=== PATIENT | male | born 1950 | race Caucasian/White ===

== ENCOUNTER 2023-09-30 07:16 | Outpatient (RCR) | payer MEDICARE, OTHER, SELFPAY | END 2023-09-30 23:59 | disposition home or self-care (01) | LOC: RST 07:16 | PROVIDERS: ATTENDING PHYSICIAN Family Medicine | DX: I69.322 Dysarthria following cerebral infarction (principal); I69.321 Dysphasia following cerebral infarction | CPT/HCPCS: 92523 ==

== ENCOUNTER 2023-10-21 07:52 | Outpatient (RCR) | payer MEDICARE, OTHER, SELFPAY | END 2023-10-21 23:59 | disposition home or self-care (01) | LOC: ROT 07:52 | PROVIDERS: ATTENDING PHYSICIAN Family Medicine | DX: I69.322 Dysarthria following cerebral infarction (principal); I69.321 Dysphasia following cerebral infarction; Z73.6 Limitation of activities due to disability | CPT/HCPCS: 92507 ==

== ENCOUNTER 2024-07-22 13:54 | Emergency (ER) | payer MEDICARE, OTHER, SELFPAY ==
[2024-07-22 14:06] VITALS: BP 160/111
--- NOTE | 2024-07-22 14:21 | ED.GENMED ---
ED Provider Triage
<Katherine Izaguirre PA-C - Last Filed: 07/22/24 14:22>
-
Patient seen by provider in Triage?: Seen in Triage
Attestation: A medical screening examination has been initiated by a qualified medical provider. Based on the assessment performed at this time, it has been determined that an emergent medical condition may exist and the patient has been informed
that further medical evaluation and possible additional diagnostic testing may be needed.
HPI: 74yoM here for detox evaluation. Drinks two 375ml bottles of vodka/day. Last drink this morning. Would like to stop drinking. No prior history of withdrawal seizures.
GENERAL: Alert , in no apparent distress
EYE: No visual abnormalities.
NECK: Trachea midline
ENT: No visible abnormalities.
LUNGS: No acute respiratory distress
NEUROLOGICAL: Alert and oriented
SKIN: Skin intact. No visible changes.
MUSCULOSKELETAL: Moving extremities normally
PSYCH: Normal and appropriate interaction.
This is a medical evaluation conducted in person to initiate diagnostic evaluation and provide initial therapeutics. Please see further documentation by the treating clinician.
CBC, CMP, ETOH, magnesium, and EKG ordered.
History of Present Illness
<Katherine Izaguirre PA-C - Last Filed: 07/22/24 14:22>
General
Chief Complaint: Alcohol Problem
Time Seen by Provider: 07/22/24 16:12
<Lopez Travis PA-C - Last Filed: 07/22/24 21:35>
General
Source: patient
Exam Limitations: none
History of Present Illness
History of Present Illness:
74-year-old male presents stating that he is an alcoholic and he is interested in getting help with his problem. He is hoping to get into a detox facility. He last had a beverage today. He states he had a bottle of champagne today. He usually
drinks of vodka daily. He has a history of stroke is on Plavix. He has no complaints currently.
Past History
<Katherine Izaguirre PA-C - Last Filed: 07/22/24 14:22>
Past History
ED Past Medical History: HTN and Other (osteoporosis, psoriasis)
ED Past Surgical History: Appendectomy and Orthopedic
Social History
Tobacco: Smoker
Alcohol: Chronic alcoholic
Drug: None
Personal: Partner
Living: with roommate (partner)
Employment: Retired
Phy Exam
<Lopez Travis PA-C - Last Filed: 07/22/24 21:35>
Physical Exam
Physical Exam:
General: Well-appearing male no acute respiratory distress
HEENT normocephalic atraumatic neck is supple
Heart: Regular rate and rhythm no murmurs
Lungs: Clear no wheeze
Neurologic: Alert and oriented no facial asymmetry
Extremities: No cyanosis
Scores
<Lopez Travis PA-C - Last Filed: 07/22/24 21:35>
Withdrawal Assessment of Alcohol
Withdrawal Assessment Completed?: No
Course
<Katherine Izaguirre PA-C - Last Filed: 07/22/24 14:22>
Orders/Labs/Results
Orders:
Orders
07/22/24 14:19
Electrocardiogram (*1) Urgent
Reason for Study: Other
Other Reason for Exam: detox
EKG- Treatment ONCE
07/22/24 14:27
Acetaminophen Urgent
Alcohol Urgent
Complete Blood Count/With Diff Urgent
Comprehensive Metabolic Panel Urgent
Magnesium Urgent
Salicylate Urgent
Abnormal Lab Results
07/22/24
14:27
RBC 4.29 L 10^6/uL
(4.70-6.10)
MCH 33.1 H pg
(27.0-31.0)
RDW 14.9 H %
(11.5-14.5)
Carbon Dioxide 21 L mmol/L
(22-30)
BUN 23 H mg/dl
(9-20)
Salicylates < 1.0 L mg/dl
(2.0-20.0)
Acetaminophen < 10 L ug/ml
(10-30)
07/22/24 14:27
07/22/24 14:27
Vital Signs
Initial and Last Documented VS:
Initial Vital Signs
Temp Pulse Resp BP Pulse Ox
98.8 F 95 20 160/111 97
07/22/24 14:06 07/22/24 14:06 07/22/24 14:06 07/22/24 14:06 07/22/24 14:06
Last Documented Vital Signs
Temp Pulse Resp BP Pulse Ox
98.8 F 89 22 139/99 95
07/22/24 14:06 07/22/24 18:30 07/22/24 18:30 07/22/24 17:34 07/22/24 18:30
West[facility];Lopez Travis PA-C - Last Filed: 07/22/24 21:35>
Orders/Labs/Results
Orders:
Orders
07/22/24 14:19
Electrocardiogram (*1) Urgent
Reason for Study: Other
Other Reason for Exam: detox
EKG- Treatment ONCE
07/22/24 14:27
Acetaminophen Urgent
Alcohol Urgent
Complete Blood Count/With Diff Urgent
Comprehensive Metabolic Panel Urgent
Magnesium Urgent
Salicylate Urgent
Abnormal Lab Results
07/22/24
14:27
RBC 4.29 L 10^6/uL
(4.70-6.10)
MCH 33.1 H pg
(27.0-31.0)
RDW 14.9 H %
(11.5-14.5)
Carbon Dioxide 21 L mmol/L
(22-30)
BUN 23 H mg/dl
(9-20)
Salicylates < 1.0 L mg/dl
(2.0-20.0)
Acetaminophen < 10 L ug/ml
(10-30)
07/22/24 14:27
07/22/24 14:27
Vital Signs
Initial and Last Documented VS:
Initial Vital Signs
Temp Pulse Resp BP Pulse Ox
98.8 F 95 20 160/111 97
07/22/24 14:06 07/22/24 14:06 07/22/24 14:06 07/22/24 14:06 07/22/24 14:06
Last Documented Vital Signs
Temp Pulse Resp BP Pulse Ox
98.8 F 89 22 139/99 95
07/22/24 14:06 07/22/24 18:30 07/22/24 18:30 07/22/24 17:34 07/22/24 18:30
<Lopez Travis PA-C - Last Filed: 07/22/24 21:35>
MDM/Problems Addressed
Differential Diagnosis Includes:
Patient with alcohol abuse. Is requesting alcohol detox or rehab. Vital signs currently stable. Does have a history of hypertension. Will contact [facility] for their involvement. Labs reviewed
<Lopez Travis PA-C - Last Filed: 07/22/24 21:35>
*Critical Care Note
Total Time (30-74mins, 75-104mins- exclusive of procedures): Not Applicable
<Lopez Travis PA-C - Last Filed: 07/22/24 21:35>
Update Note
Update Note:
Discussed with [facility]. They will to find a place for him tonight. He is stable for discharge to alcohol detox
ED Attending Note
<Katherine Izaguirre PA-C - Last Filed: 07/22/24 14:22>
-
Portions of this chart may have been created with voice recognition software.� Occasional wrong word or��sound alike� substitutions may have occurred due to the inherent limitations of voice recognition software.
Discharge Plan
Departure
Patient Disposition: Home (Routine Discharge)
Date of Disposition: 07/22/24
Time of Disposition: 21:34
Patient with high blood pressure during this ER visit?: No
Discharge Problem:
Alcohol abuse
Prescriptions:
No Action
amlodipine [Norvasc] 10 mg Tablet
10 mg PO DAILY
losartan 25 mg Tablet
25 mg PO DAILY
escitalopram oxalate [Lexapro] 20 mg Tablet
20 mg PO DAILY
bupropion HCl [Wellbutrin XL] 300 mg Tablet Extended Release 24 Hr
300 mg PO DAILY
clopidogrel 75 mg Tablet
75 mg PO DAILY Qty: 30 0RF
atorvastatin 80 mg Tablet
80 mg PO QPM Qty: 30 0RF
pantoprazole 40 mg Tablet,Delayed Release (Dr/Ec)
40 mg PO DAILYPRN PRN (Reason: gerd) Qty: 20 0RF
folic acid 1 mg Tablet
1 mg PO DAILY Qty: 0 0RF
thiamine HCl (vitamin B1) 100 mg Tablet
100 mg PO BID Qty: 0 0RF
aspirin 81 mg Tablet,Delayed Release (Dr/Ec)
81 mg PO DAILY Qty: 0 0RF
Rx Instructions:
take for 3 weeks along with plavix then stop aspirin only
Referrals:
Callie Chang, DO [Family Provider] -
Activity Restrictions/Additional Instructions:
Please seek further treatment at the alcohol detox facility. Continue to take your blood pressure medicine
Interventions
Interventions:
*Risk Screen - Suicide Last Done: 07/22/24 14:06
*General Assessment Last Done: 07/22/24 14:06
*Neglect/Abuse Screening Last Done: 07/22/24 14:06
ED- Fall Risk Assessment Last Done: 07/22/24 20:37
*ED COVID-19 Vaccine History Last Done: 07/22/24 14:06
ED- Neurological Assessment Last Done: 07/22/24 16:32
ED-Psychological Assessment Last Done: 07/22/24 16:32
Discharge Date and Time
Print Language: IRISH
[2024-07-22 14:38] LABS: % Basophils 1.3 % (0-2); % Eosinophils 3.3 % (0-6); % Immature Granulocytes 0.3 % (0-0.5); % Lymphocytes 33.4 % (20.5-51.1); % Monocytes 7.3 % (1.7-9.3); % Neutrophils 54.4 % (42.2-75.2); Absolute Basophils 0.1 10^3/uL (0-0.2); Absolute Eosinophils 0.2 10^3/uL (0-0.7); Absolute Lymphocytes 2.3 10^3/uL (1.2-3.4); Absolute Monocytes 0.5 10^3/uL (0.1-0.6); Absolute Neutrophils 3.7 10^3/uL (1.4-6.5); Hemoglobin 14.2 g/dL (13.0-18.0); Mean Corp Hgb Conc. 36.4 g/dL (33.0-37.0); Mean Corpuscular Hgb 33.1 pg (27.0-31.0); Mean Corpuscular Volume 90.9 fL (80.0-94.0); Mean Platelet Volume 8.9 fL (7.4-10.4); Nucleated Red Blood Cells % 0 % (-); Platelet Count 195 10^3/uL (130-400); Red Blood Cell Count 4.29 10^6/uL (4.70-6.10); Red Cell Dist. Width 14.9 % (11.5-14.5); White Blood Cell Count 6.9 10^3/uL (4.8-10.8)
[2024-07-22 14:56] LABS: ALT (SGPT) 32 U/L (0-50); AST (SGOT) 44 U/L (17-59); Albumin 4.9 g/dl (3.5-5.0); Alkaline Phosphatase 62 U/L (38-126); Blood Urea Nitrogen 23 mg/dl (9-20); Calcium 9.2 mg/dl (8.4-10.2); Carbon Dioxide 21 mmol/L (22-30); Chloride 103 mmol/L (98-107); Glucose 80 mg/dl (70-99); Magnesium 1.8 mg/dl (1.6-2.3); Potassium 4.1 mmol/L (3.5-5.1); Sodium 139 mmol/L (135-145); Total Bilirubin 0.9 mg/dl (0.2-1.3); Total Protein 7.3 g/dl (6.3-8.2); eGFR > 60.00
[2024-07-22 15:22] LABS: Acetaminophen < 10 ug/ml (10-30); Alcohol 118 mg/dl; Salicylate < 1.0 mg/dl (2.0-20.0)
[2024-07-22 17:02] VITALS: BP 137/96
[2024-07-22 17:34] VITALS: BP 139/99
[2024-07-22 21:40] VITALS: BP 171/105
[2024-07-22 21:43] VITALS: BP 171/105
== END 2024-07-22 21:54 | disposition home or self-care (01) ==
LOC: EMR 13:54
PROVIDERS: EMERGENCY PHYSICIAN Emergency Medicine; FAMILY PHYSICIAN Family Medicine
DX: F10.20 Alcohol dependence, uncomplicated (principal); I10 Essential (primary) hypertension; M81.0 Age-related osteoporosis without current pathological fracture; L40.9 Psoriasis, unspecified; F17.200 Nicotine dependence, unspecified, uncomplicated; Z79.02 Long term (current) use of antithrombotics/antiplatelets; Z86.73 Personal history of transient ischemic attack (TIA), and cerebral infarction without residual deficits
CPT/HCPCS: 99284; 80053; 80143; 80179; 82077; 83735; 85025; 93005